=== PATIENT | male | born 1970 | race Caucasian/White ===

== ENCOUNTER 2017-07-24 10:37 | Day surgery (SDC) | payer OTHER ==
[2017-07-21 12:43] VITALS: BMI 31.0
[2017-07-24 11:19] VITALS: BP 135/79; PULSE 66; TEMP 99
[2017-07-24 11:32] LABS: INR 1.04 (0.82-1.09); PROTHROMBIN TIME (PATIENT) 11.7 SEC (9.98-11.88)
[2017-07-24 11:34] LABS: ACTIVATED PTT 28.1 SECONDS (26.9-34.4)
== END 2017-07-24 11:57 | disposition home or self-care (01) ==
LOC: JASU-SURG 10:37
PROVIDERS: ATTEND Urology
PROC: 0T29XYZ Change Other Device in Ureter, External Approach (ICD-10-PCS; principal; 2017-07-24)
DX: Z53.8 Procedure and treatment not carried out for other reasons (principal)
CPT/HCPCS: 36415; 85610; 85730

== ENCOUNTER 2019-05-13 14:31 | Emergency (ER) | payer BC ==
[2019-05-13 14:46] VITALS: BP 133/73; PULSE 51; TEMP 98.5; BMI 29.7
[2019-05-13] MEDS ORDERED: ASPIRIN 81 MG CHEWABLE TABLETS PO ONE (15:04)
--- NOTE | 2019-05-13 15:26 | PDOC ---
Documentation entered by Patricia Sabillon SCRIBE, acting as scribe for Kenneth Buenrostro MD. Kenneth Buenrostro MD: This documentation has been prepared by the sisacibeRidge Lincy, SCRIBE, under my direction and personally reviewed by me in its entirety. I confirm that the documentation accurately reflects all work, treatment, procedures, and medical decision making performed by me. History of Present Illness - General Chief Complaint: Chest Pain Stated Complaint: CHEST PAIN History Source: Patient Exam Limitations: No Limitations - History of Present Illness Initial Comments: 05/13/19 14:53 The patient is a 48-year-old male with a past medical history significant for Gastric sleeve (2012 with complications) and chronic tobacco user who presents to the emergency department with chest pain. The patient reports he was en route to work at [employer] when he had a sudden onset of right-sided anterior chest pain associated with right-hand numbness. The patient reports the pain lasted for about 45 minutes before self-resolving since then, the pain has been intermittent in quality. The patient reports a similar episode yesterday around 10:30am while walking around at work. Denies nausea, vomiting, diaphoresis, palpitations, lightheadedness, or shortness of breath. The patient reports in January 2019 the patient was diagnosed with pneumonia after episodes of hemoptysis, treated with Levaquin and prednisone. Denies fever, chills, or cough. Family history: Father: CHF (decreased 6 years ago). Mother: Open heart surgery with valve replacement (4 years ago). Allergies: NKA Social history: Daily tobacco use, Denies the use of alcohol and recreational drugs. The patient reports he has 2 cups of coffee in the morning. Surgical history: Gastric sleeve (2012) PCP: Dr. Leta Guy Past History - Past Medical History Allergies/Adverse Reactions: Allergies Allergy/AdvReac Type Severity Reaction Status Date / Time No Known Allergies Allergy Verified 05/13/19 14:37 Home Medications: Ambulatory Orders Haloperidol Lactate 50 ml IM ASDIR 11/03/15 Metoprolol Succinate [Toprol Xl] 25 mg PO DAILY #30 tab.er.24h 05/13/19 Anemia: No Asthma: No Cancer: No Cardiac Disorders: Yes (MULTIPLE DVTS) CVA: No COPD: No CHF: No Dementia: No Diabetes: No GI Disorders: No Disorders: No HTN: No Hypercholesterolemia: No Liver Disease: No Seizures: No Thyroid Disease: No - Surgical History Abdominal Surgery: Yes (GASTRIC SLEEVE 09/10/12) Appendectomy: No Cardiac Surgery: No Cholecystectomy: No Lung Surgery: No Neurologic Surgery: No Orthopedic Surgery: No - Immunization History Immunization Up to Date: Yes - Psycho Social/Smoking Cessation Hx Smoking Status: Yes Smoking History: Current some day smoker Have you smoked in the past 12 months: Yes Number of Cigarettes Smoked Daily: 5 'Breaking Loose' booklet given: 07/21/17 Hx Alcohol Use: No Drug/Substance Use Hx: No Substance Use Type: None Hx Substance Use Treatment: No Cardiac Specific PMH - Complaint Specific PMHX Pacemaker: No Review of Systems - Review of Systems Able to Perform ROS?: Yes Comments:: 05/13/19 14:53 Constitutional - Pt denies Fever, Chills, weakness, HEENT: denies vision changes, sore throat Respiratory: Denies cough, sob, hemoptysis Cardiac: +chest pain. denies palpitations, light headedness, leg swelling Abd/GI: denies abd pain, nausea, vomiting, blood per rectum, melena, diarrhea : denies dysuria, frequency, discharge Musculskelatal - denies back pain, joint swelling skin - denies bruising, erythema, rash neurological: +right hand numbness, denies headache, numbness elsewhere, focal weakness, tingling, ataxia, weakness hematologic: denies anemia, easy bruising, easy bleeding. *Physical Exam - Vital Signs Last Vital Signs Temp Pulse Resp BP Pulse Ox 98.5 F 51 L 20 133/73 99 05/13/19 14:31 05/13/19 14:31 05/13/19 14:31 05/13/19 14:31 05/13/19 14:31 - Physical Exam 05/13/19 14:55 GENERAL: The patient is awake, alert, and fully oriented, Nontoxic - in no acute distress. HEAD: Normocephalic, atraumatic. EYES: extraocular movements intact, sclera anicteric, conjunctiva clear. ENT: Normal voice, Moist mucous membranes. NECK: Normal range of motion, supple without lymphadenopathy, JVD, or masses. LUNGS: Breath sounds equal, clear to auscultation bilaterally. No wheezes, no crackles, no rales. HEART: Regular rate and rhythm, normal S1 and S2 without murmur, rub or gallop. ABDOMEN: Soft, nontender, normoactive bowel sounds. No guarding, no rebound. No masses. EXTREMITIES: Normal range of motion, no edema. No clubbing or cyanosis. No cords, erythema, or tenderness. NEUROLOGICAL: No facial asymmetry, Normal speech, normal gait. PSYCH: Normal mood, normal affect. SKIN: Warm, Dry, normal turgor, no rashes or lesions noted. Heart Score/ECG Review - ECG Impressions Comment:: 05/13/19 15:25 Twelve-lead EKG was performed and reviewed by me. There is normal sinus rhythm rate of 49 The axis is normal. The intervals are normal. There is normal R wave progression There are no ST or T wave abnormalities. Impression: Sinus bradycardia ED Treatment Course - LABORATORY CBC & Chemistry Diagram: 05/13/19 15:15 05/13/19 15:15 - ADDITIONAL ORDERS Additional order review: Laboratory Results 05/13/19 05/13/19 05/13/19 17:30 17:30 15:15 Sodium 136 Potassium 4.7 Chloride 103 Carbon Dioxide 26 Anion Gap 7 L BUN 15.0 Creatinine 0.8 Est GFR (CKD-EPI)AfAm 122.43 Est GFR (CKD-EPI)NonAf 105.63 Random Glucose 90 Calcium 9.2 Total Bilirubin 0.4 AST 14 L ALT 12 L Alkaline Phosphatase 22 L Creatine Kinase 78 76 Troponin I < 0.03 Total Protein 7.2 Albumin 4.0 05/13/19 15:15 Sodium Potassium Chloride Carbon Dioxide Anion Gap BUN Creatinine Est GFR (CKD-EPI)AfAm Est GFR (CKD-EPI)NonAf Random Glucose Calcium Total Bilirubin AST ALT Alkaline Phosphatase Creatine Kinase Troponin I < 0.03 Total Protein Albumin 05/13/19 15:15 RBC 5.02 MCV 91.7 MCHC 32.8 RDW 12.8 MPV 9.5 Neutrophils % 62.8 Lymphocytes % 27.3 Monocytes % 8.2 Eosinophils % 0.9 Basophils % 0.8 - RADIOLOGY Radiology Studies Ordered: Category Date Time Status CHEST PA & LAT [RAD] Stat Radiology 05/13/19 15:04 Completed - Medications Given in the ED: ED Medications Discontinued Medications Generic Name Dose Route Start Last Admin Trade Name Freq PRN Reason Stop Dose Admin Aspirin 162 mg 05/13/19 15:04 05/13/19 15:29 Asa - PO 05/13/19 15:05 162 mg ONCE ONE Administration Medical Decision Making - Medical Decision Making 05/13/19 15:04 48y M with smoking hx presents with 45min episode of chest tightness and R arm numbness today and yesterday. pain is not exertional without n/v, diaphroesis, sob, palitations. pt currently asymptomatic. ?acs/angina will obtain blood work, cardiac enzymes, ekg, cxr will give asa will dw PMD 05/13/19 16:34 Patient's blood work is reviewed, tropes negative x1. The patient started to have the same symptoms approximately 15 minutes ago a repeat EKG was performed it does show a sinus rhythm with bigeminy, The initial EKG was sinus bradycardia. I suspect that rather than ACS his tightness symptoms may be secondary to the bigeminy rhythm. 05/13/19 17:56 2nd trop neg will dc with pmd fu and supportive care dw PMD - recommend starting toprol xl 25mg daily return precautions were discussed I discussed the physical exam findings, ancillary test results and final diagnoses with the patient. I answered all of the patient's questions. The patient was satisfied with the care received and felt comfortable with the discharge plan and treatment plan. The patient will call their primary care physician within 24 hours to arrange follow-up and will return to the Emergency Department with any new, persistent or worsening symptoms. Discharge - Discharge Information Problems reviewed: Yes Clinical Impression/Diagnosis: Bigeminy Chest pain Qualifiers: Chest pain type: unspecified Qualified Code(s): R07.9 - Chest pain, unspecified Condition: Improved Disposition: HOME - Admission No - Additional Discharge Information Prescriptions: Metoprolol Succinate [Toprol Xl] 25 mg PO DAILY #30 tab.er.24h - Follow up/Referral Referrals: Lobo Guy MD [Primary Care Provider] - - Patient Discharge Instructions Patient Printed Discharge Instructions: DI for Atypical Chest Pain Additional Instructions: Return to the emergency department immediately with ANY new, persistent or worsening symptoms. You MUST call and follow up with your doctor tomorrow for further evaluation of your symptoms. Results were discussed with you. Please make sure your doctor reviews the results of your emergency evaluation. Your Emergency Department visit is not complete without a follow up with your doctor. If you had any xrays during your visit, it was read preliminarily by myself, a Radiologist will review it and if there are any additional findings we will call you. Print Language: NEPALI - Post Discharge Activity
[2019-05-13] MEDS ORDERED: ASPIRIN 81 MG CHEWABLE TABLETS ONE (15:27)
[2019-05-13 15:52] LABS: BASO % 0.8 % (0-2.0); EOS % 0.9 % (0-4.5); HEMOGLOBIN 15.1 GM/dl (11.7-16.9); LYMPH % 27.3 % (8-40); MCH 30.1 pg (25.7-33.7); MCHC 32.8 g/dl (32.0-35.9); MEAN CELL VOLUME 91.7 fl (80-96); MEAN PLT VOLUME 9.5 fl (7.5-11.1); MONO % 8.2 % (3.8-10.2); NEUT % 62.8 % (42.8-82.8); PLATELET COUNT 256 K/MM3 (134-434); RBC 5.02 M/mm3 (4.00-5.60); RDW 12.8 % (11.9-15.9); WHITE BLOOD COUNT 9.2 K/mm3 (4.0-10.8)
[2019-05-13 16:02] LABS: BILIRUBIN,TOTAL 0.4 mg/dl (0.2-1); CALCIUM 9.2 mg/dl (8.5-10); CREATININE 0.8 mg/dl (0.55-1.3); POTASSIUM 4.7 mmol/L (3.5-5.1); TOT PROT 7.2 g/dl (6.4-8.2)
--- NOTE | 2019-05-14 11:31 | EKG ---
Test Reason : Blood Pressure : / mmHG Vent. Rate : 085 BPM Atrial Rate : 085 BPM P-R Int : 136 ms QRS Dur : 076 ms QT Int : 368 ms P-R-T Axes : 049 020 039 degrees QTc Int : 437 ms SINUS RHYTHM WITH FREQUENT PREMATURE VENTRICULAR COMPLEXES IN A PATTERN OF BIGEMINY OTHERWISE NORMAL ECG WHEN COMPARED WITH ECG OF 13-MAY-2019 14:34, PREMATURE VENTRICULAR COMPLEXES ARE NOW PRESENT VENT. RATE HAS INCREASED BY 36 BPM QT HAS LENGTHENED Confirmed by Daniel Alonzo MD ([id number]) on 05/14/2019 11:31:34 AM Referred By: Confirmed By:Daniel Alonzo MD
--- NOTE | 2019-05-14 11:31 | EKG ---
Test Reason : Blood Pressure : / mmHG Vent. Rate : 049 BPM Atrial Rate : 049 BPM P-R Int : 134 ms QRS Dur : 084 ms QT Int : 410 ms P-R-T Axes : 065 040 046 degrees QTc Int : 370 ms SINUS BRADYCARDIA OTHERWISE NORMAL ECG WHEN COMPARED WITH ECG OF 18-NOV-2015 09:58, VENT. RATE HAS DECREASED BY 25 BPM Confirmed by Daniel Alonzo MD ([id number]) on 05/14/2019 11:31:35 AM Referred By: CHRIS EDWARDS Confirmed By:Daniel Alonzo MD
== END 2019-05-13 18:03 | disposition home or self-care (01) ==
LOC: FER 14:31 → SUPCPDRO 14:31 → FER 18:03
DX: I49.3 Ventricular premature depolarization (principal); R07.9 Chest pain, unspecified
CPT/HCPCS: 36415; 71046-TC-FY; 80053; 82550; 84484; 85025; 93005; 99282-25

== ENCOUNTER 2020-09-03 13:09 | Emergency (ER) | payer BC ==
[2020-09-03 13:28] VITALS: TEMP 99; BMI 27.3
[2020-09-03] MEDS ORDERED: SODIUM CHLORIDE 0.9% 1000 ML INFUS.BAG IV ONE (13:47)
[2020-09-03 13:50] LABS: BASO % 3.9 % (0-2.0); EOS % 2.3 % (0-4.5); HEMATOCRIT 43.5 % (35.4-49); HEMOGLOBIN 14.6 GM/dl (11.7-16.9); LYMPH % 33.3 % (8-40); MCH 30.7 pg (25.7-33.7); MCHC 33.6 g/dl (32.0-35.9); MEAN CELL VOLUME 91.5 fl (80-96); MEAN PLT VOLUME 9.4 fl (7.5-11.1); MONO % 10.2 % (3.8-10.2); NEUT % 50.3 % (42.8-82.8); PLATELET COUNT 240 K/MM3 (134-434); RBC 4.75 M/mm3 (4.00-5.60); RDW 13.1 % (11.9-15.9); WHITE BLOOD COUNT 9.6 K/mm3 (4.0-10.8)
[2020-09-03 13:53] LABS: ALBUMIN 4.2 g/dl (3.4-5.0); BILIRUBIN,TOTAL 0.9 mg/dl (0.2-1); CALCIUM 9.3 mg/dl (8.5-10); CREATININE 0.7 mg/dl (0.55-1.3); TOT PROT 7.5 g/dl (6.4-8.2)
[2020-09-03 14:15] VITALS: PULSE 45
[2020-09-03 14:30] VITALS: BP 112/89
[2020-09-03] MEDS ORDERED: HALOPERIDOL DECANOATE 100 MG/ML IM ONE (14:46)
== END 2020-09-03 15:24 | disposition home or self-care (01) ==
LOC: FER 13:09
PROC: 3E0233Z Introduction of Anti-inflammatory into Muscle, Percutaneous Approach (ICD-10-PCS; principal; 2020-09-03)
DX: R00.1 Bradycardia, unspecified (principal); R91.1 Solitary pulmonary nodule; I25.84 Coronary atherosclerosis due to calcified coronary lesion; R07.2 Precordial pain
CPT/HCPCS: 36415; 71045-TC-FY; 71275-TC; 74174-TC; 80053; 82550; 82553; 84443; 84484; 85025; 93005; 99285-25; C9803; Q9967; U0003; U0005

== ENCOUNTER 2020-09-17 12:52 | Emergency (ER) | payer BC ==
[2020-09-17 14:53] VITALS: BMI 27.3
[2020-09-17 14:57] LABS: HEMOGLOBIN 14.3 GM/dl (11.7-16.9)
[2020-09-17 15:01] LABS: BASO % 2.5 % (0-2.0); HEMATOCRIT 40.6 % (35.4-49); LYMPH % 25.2 % (8-40); MCH 31.8 pg (25.7-33.7); MCHC 35.2 g/dl (32.0-35.9); MEAN CELL VOLUME 90.4 fl (80-96); MEAN PLT VOLUME 8.9 fl (7.5-11.1); MONO % 10.5 % (3.8-10.2); NEUT % 59.8 % (42.8-82.8); PLATELET COUNT 209 K/MM3 (134-434); RBC 4.49 M/mm3 (4.00-5.60); RDW 12.8 % (11.9-15.9); WHITE BLOOD COUNT 7.7 K/mm3 (4.0-10.8)
[2020-09-17] MEDS ORDERED: ASPIRIN 81 MG CHEWABLE TABLETS PO ONE (15:09)
[2020-09-17 15:15] LABS: ALBUMIN 3.6 g/dl (3.4-5.0); BILIRUBIN,TOTAL 0.8 mg/dl (0.2-1); CALCIUM 8.8 mg/dl (8.5-10); CREATININE 0.7 mg/dl (0.55-1.3); TOT PROT 6.6 g/dl (6.4-8.2)
[2020-09-17] MEDS ORDERED: ASPIRIN 81 MG CHEWABLE TABLETS ONE (15:29)
[2020-09-17 15:44] LABS: ACTIVATED PTT 25.1 SECONDS (25.2-36.5)
[2020-09-17 15:48] LABS: INR 1.18 (0.82-1.09); PROTHROMBIN TIME (PATIENT) 13.1 SEC (10.2-13.0)
[2020-09-17 21:23] VITALS: BP 126/72; PULSE 38; TEMP 98.6
== END 2020-09-18 00:55 | disposition short-term general hospital (02) ==
LOC: FER 12:52
DX: R07.9 Chest pain, unspecified (principal); R00.1 Bradycardia, unspecified
CPT/HCPCS: 36415; 71046-TC-FY; 80053; 84484; 85025; 85610; 85730; 93005; 99283-25; C9803; U0003; U0005

== ENCOUNTER 2020-10-12 16:17 | Observation (INO) | payer BC ==
[2020-10-12 16:27] VITALS: BMI 29.0
[2020-10-12 18:16] LABS: BASO % 1.5 % (0-2.0); EOS % 2.7 % (0-4.5); HEMATOCRIT 40.7 % (35.4-49); HEMOGLOBIN 13.9 GM/dL (11.7-16.9); LYMPH % 28.6 % (8-40); MCH 30.6 pg (25.7-33.7); MEAN CELL VOLUME 89.7 fl (80-96); MEAN PLT VOLUME 8.7 fl (7.5-11.1); MONO % 10.6 % (3.8-10.2); NEUT % 56.6 % (42.8-82.8); PLATELET COUNT 204 10^3/uL (134-434); RBC 4.53 M/mm3 (4.00-5.60); RDW 13.6 % (11.9-15.9)
[2020-10-12 18:34] LABS: CHLORIDE 109 mmol/L (98-107); SODIUM 141 mmol/L (136-145)
[2020-10-12 18:36] LABS: CALCIUM 8.4 mg/dL (8.5-10.1)
[2020-10-12 18:37] LABS: ALBUMIN 3.3 g/dl (3.4-5.0); ANION GAP 7 MMOL/L (8-16); BLOOD UREA NITROGEN 15.5 mg/dL (7-18); CO2 24 mmol/L (21-32); GLUCOSE,RANDOM 80 mg/dL (74-106)
[2020-10-12 18:39] LABS: MAGNESIUM 1.9 mg/dL (1.8-2.4)
[2020-10-12 18:40] LABS: CREATININE 0.7 mg/dL (0.55-1.3); SGOT/AST 12 U/L (15-37)
[2020-10-12 18:42] LABS: BILIRUBIN,TOTAL 0.3 mg/dL (0.2-1); CHOLESTEROL 156 mg/dL (50-200); TOT PROT 6.8 g/dl (6.4-8.2)
[2020-10-12 18:43] LABS: ALK PHOS 32 U/L (45-117); LDL CHOLESTEROL (ONLY SJRH) 97 mg/dL (5-100); TRIGLYCERIDES 93 mg/dL (0-150)
[2020-10-12 18:45] LABS: HDL CHOLESTEROL 38 mg/dL (40-60)
[2020-10-12 18:49] LABS: SGPT/ALT 15 U/L (13-61)
[2020-10-12] MEDS: ESCITALOPRAM OXALATE 10 MG TABLET PO SCH (21:47)
[2020-10-12] MEDS: SODIUM CHLORIDE 1,000 ML IV SCH (21:48)
[2020-10-12] MEDS: PENTOXIFYLLINE 400 MG TABLET.ER PO SCH (21:48)
[2020-10-12] MEDS: ARIPiprazole 10 MG TABLET PO SCH (21:49)
[2020-10-13 07:20] LABS: HEMATOCRIT 40.7 % (35.4-49); HEMOGLOBIN 13.8 GM/dL (11.7-16.9); MCH 30.6 pg (25.7-33.7); MCHC 33.9 g/dl (32.0-35.9); MEAN CELL VOLUME 90.4 fl (80-96); MEAN PLT VOLUME 8.4 fl (7.5-11.1); PLATELET COUNT 192 10^3/uL (134-434); RDW 13.5 % (11.9-15.9); WHITE BLOOD COUNT 7.3 K/mm3 (4.0-10.0)
[2020-10-13] MEDS ORDERED: PT OWN MED DRAWER 7, Y5N ONE ×5 (09:13→21:10)
[2020-10-13] MEDS: ASPIRIN COATED 81 MG TABLET.EC PO SCH (09:24)
[2020-10-13] MEDS: PENTOXIFYLLINE 400 MG TABLET.ER PO SCH ×3 (09:24→18:54)
[2020-10-13 09:51] LABS: MAGNESIUM 1.9 mg/dL (1.8-2.4)
[2020-10-13] MEDS: SODIUM CHLORIDE 1,000 ML IV SCH (18:54)
[2020-10-13] MEDS ORDERED: HALOPERIDOL DECANOATE 100 MG/ML IM ONE (21:00)
[2020-10-13] MEDS: ESCITALOPRAM OXALATE 10 MG TABLET PO SCH (21:19)
[2020-10-13] MEDS: ATORVASTATIN CA 40 MG TABLET (FP) PO SCH (21:19)
[2020-10-13] MEDS: ARIPiprazole 10 MG TABLET PO SCH (21:19)
[2020-10-14] MEDS ORDERED: PT OWN MED DRAWER 7, Y5N ONE ×4 (09:33→21:22)
[2020-10-14] MEDS: PENTOXIFYLLINE 400 MG TABLET.ER PO SCH ×3 (10:47→18:31)
[2020-10-14] MEDS: ASPIRIN COATED 81 MG TABLET.EC PO SCH (10:47)
[2020-10-14] MEDS: MECLIZINE HCL 12.5 MG TABLET PO SCH ×2 (14:26→21:37)
[2020-10-14] MEDS: ARIPiprazole 10 MG TABLET PO SCH (21:36)
[2020-10-14] MEDS: ATORVASTATIN CA 40 MG TABLET (FP) PO SCH (21:37)
[2020-10-14] MEDS: ESCITALOPRAM OXALATE 10 MG TABLET PO SCH (21:37)
[2020-10-15] MEDS: MECLIZINE HCL 12.5 MG TABLET PO SCH ×3 (05:00→21:44)
[2020-10-15] MEDS ORDERED: PT OWN MED DRAWER 7, Y5N ONE ×3 (08:00→21:38)
[2020-10-15] MEDS: PENTOXIFYLLINE 400 MG TABLET.ER PO SCH ×3 (08:02→17:10)
[2020-10-15] MEDS: ASPIRIN COATED 81 MG TABLET.EC PO SCH (10:29)
[2020-10-15] MEDS ORDERED: HALOPERIDOL DECANOATE 100 MG/ML IM ONE (13:41)
[2020-10-15] MEDS ORDERED: ACETAMINOPHEN 500 MG TABLET (FP) PO PRN (13:41)
[2020-10-15] MEDS: ATORVASTATIN CA 40 MG TABLET (FP) PO SCH (21:43)
[2020-10-15] MEDS: ARIPiprazole 10 MG TABLET PO SCH (21:43)
[2020-10-15] MEDS: ESCITALOPRAM OXALATE 10 MG TABLET PO SCH (21:43)
[2020-10-16 05:58] VITALS: BP 124/57; PULSE 38; TEMP 97.8
[2020-10-16] MEDS: MECLIZINE HCL 12.5 MG TABLET PO SCH (06:01)
[2020-11-09] MEDS ORDERED: HALOPERIDOL DECANOATE 100 MG/ML IM SCH (10:00)
[2020-11-10] MEDS ORDERED: HALOPERIDOL DECANOATE 100 MG/ML IM SCH (10:00)
== END 2020-10-16 06:45 | disposition short-term general hospital (02) ==
LOC: JER 16:17 → JERBED 16:56 → UNDOADMOB 16:56 → INTOOBSV 16:56 → JERBED 17:10 → J4S 20:36
PROVIDERS: ADMIT Family Medicine; ATTEND Family Medicine
PROC: 3E023GC Introduction of Other Therapeutic Substance into Muscle, Percutaneous Approach (ICD-10-PCS; principal; 2020-10-12)
DX: R00.1 Bradycardia, unspecified (principal); R07.89 Other chest pain; I10 Essential (primary) hypertension; I48.0 Paroxysmal atrial fibrillation; R91.8 Other nonspecific abnormal finding of lung field; F17.210 Nicotine dependence, cigarettes, uncomplicated; F41.9 Anxiety disorder, unspecified; F32.9 Major depressive disorder, single episode, unspecified; G47.30 Sleep apnea, unspecified; I25.10 Atherosclerotic heart disease of native coronary artery without angina pectoris; R53.1 Weakness; R53.83 Other fatigue; Z86.718 Personal history of other venous thrombosis and embolism; Z98.84 Bariatric surgery status; Z79.82 Long term (current) use of aspirin; Z95.828 Presence of other vascular implants and grafts
CPT/HCPCS: 36415; 70450-TC; 80053; 80061; 82550; 83036; 83721; 83735; 84439; 84481; 84484; 85025; 85027; 93005; 93010; 93225; 93226; 93306-TC; 99285-25; C9803; G0378; U0003; U0005

== ENCOUNTER 2021-12-03 09:49 | Emergency (ER) | payer BC ==
[2021-12-03 10:10] VITALS: BP 130/89; PULSE 78; RESP 18; TEMP 98.3; BMI 23.1
[2021-12-03 11:06] LABS: BASO % 1.4 % (0-2.0); EOS % 1.9 % (0-4.5); HEMATOCRIT 44.9 % (35.4-49); HEMOGLOBIN 15.5 GM/dL (11.7-16.9); LYMPH % 31.2 % (8-40); MCH 30.6 pg (25.7-33.7); MCHC 34.4 g/dl (32.0-35.9); MEAN CELL VOLUME 88.8 fl (80-96); MEAN PLT VOLUME 8.9 fl (7.5-11.1); MONO % 9.2 % (3.8-10.2); NEUT % 56.3 % (42.8-82.8); PLATELET COUNT 226 10^3/uL (134-434); RBC 5.06 M/mm3 (4.00-5.60); RDW 13.6 % (11.9-15.9); WHITE BLOOD COUNT 7.9 K/mm3 (4.0-10.0)
[2021-12-03 11:10] LABS: INR 1.09 (0.83-1.09); PROTHROMBIN TIME (PATIENT) 12.5 SEC (9.7-13.0)
[2021-12-03 11:27] LABS: ALBUMIN 3.7 g/dl (3.4-5.0); BLOOD UREA NITROGEN 13.6 mg/dL (7-18)
[2021-12-03 11:30] LABS: CREATININE 0.7 mg/dL (0.55-1.3)
[2021-12-03 11:32] LABS: BILIRUBIN,TOTAL 0.4 mg/dL (0.2-1); TOT PROT 7.4 g/dl (6.4-8.2)
[2021-12-03 13:00] LABS: PHOSPHOROUS 3.8 mg/dL (2.5-4.9)
[2021-12-03] MEDS ORDERED: ACETAMINOPHEN 1000 MG/100 ML BAG IVPB ONE (13:38)
[2021-12-03] MEDS ORDERED: ACETAMINOPHEN INJECTION 100 ML IVPB ONE (14:02)
== END 2021-12-03 15:15 ==
LOC: JER 09:49
DX: I49.9 Cardiac arrhythmia, unspecified (principal)
CPT/HCPCS: 36415; 71045-TC-FY; 80053; 83690; 83735; 84100; 84439; 84443; 84484; 85025; 85610; 85730; 86850; 86900; 86901; 93005; 93010; 93971-TC; 99285-25; C9803-CS; U0003; U0005

== ENCOUNTER 2022-04-28 10:52 | Emergency (ER) | payer OTHER ==
[2022-04-28 11:06] VITALS: BP 147/96; PULSE 94; RESP 20; TEMP 98; BMI 27.8
[2022-04-28] MEDS ORDERED: SODIUM CHLORIDE 0.9% 1000 ML INFUS.BAG IV ONE (12:09)
[2022-04-28 12:50] LABS: HEMATOCRIT 46.9 % (35.4-49); HEMOGLOBIN 16.2 G/dL (11.7-16.9); MCH 31.7 pg (25.7-33.7); MCHC 34.5 g/dl (32.0-35.9); MEAN CELL VOLUME 91.7 fl (80-96); MEAN PLT VOLUME 8.5 fl (7.5-11.1); PLATELET COUNT 235.9 10^3/uL (134-434); RBC 5.11 10^6/uL (4.00-5.60); WHITE BLOOD COUNT 8.5 10^3/uL (4.0-10.8)
[2022-04-28 13:19] LABS: PLATELET ESTIMATE ADEQUATE
[2022-04-28 13:20] LABS: BILIRUBIN,TOTAL 0.8 mg/dl (0.2-1); CALCIUM 9.3 mg/dl (8.5-10); CREATININE 0.7 mg/dl (0.55-1.3); TOT PROT 7.4 g/dl (6.4-8.2)
== END 2022-04-28 14:06 | disposition home or self-care (01) ==
LOC: FER 10:52
DX: R42 Dizziness and giddiness (principal)
CPT/HCPCS: 36415; 80053; 85027; 93005; 99284-25

== ENCOUNTER 2022-06-08 15:47 | Emergency (ER) | payer OTHER ==
[2022-06-08] MEDS ORDERED: KETOROLAC TROMETHAMINE 30 MG/1 ML VIAL IM ONE (16:02)
[2022-06-08 16:04] VITALS: BP 155/98; PULSE 51; RESP 16; TEMP 98.7; BMI 27.6
[2022-06-08] MEDS ORDERED: KETOROLAC TROMETHAMINE 30 MG/1 ML VIAL ONE (16:05)
== END 2022-06-08 17:08 | disposition home or self-care (01) ==
LOC: FER 15:47
PROC: 3E023GC Introduction of Other Therapeutic Substance into Muscle, Percutaneous Approach (ICD-10-PCS; principal; 2022-06-08)
DX: M79.661 Pain in right lower leg (principal); R20.8 Other disturbances of skin sensation
CPT/HCPCS: 93971-TC; 99284-25

== ENCOUNTER 2022-08-13 10:12 | Inpatient (IN) | payer OTHER ==
[2022-08-13 10:29] VITALS: BMI 28.3
[2022-08-13 10:55] LABS: BASO % 0.8 % (0-2.0); EOS % 1.6 % (0-4.5); HEMATOCRIT 44.2 % (35.4-49); HEMOGLOBIN 15.4 GM/dL (11.7-16.9); LYMPH % 25.9 % (8-40); MCH 31.3 pg (25.7-33.7); MEAN CELL VOLUME 89.5 fl (80-96); MEAN PLT VOLUME 8.8 fl (7.5-11.1); MONO % 8.9 % (3.8-10.2); NEUT % 62.8 % (42.8-82.8); PLATELET COUNT 232 10^3/uL (134-434); RBC 4.94 M/mm3 (4.00-5.60); RDW 13.7 % (11.9-15.9); WHITE BLOOD COUNT 9.1 K/mm3 (4.0-10.0)
[2022-08-13 11:03] LABS: INR 1.1 (0.83-1.09); PROTHROMBIN TIME (PATIENT) 12.8 SEC (9.7-13.0)
[2022-08-13 11:05] LABS: ACTIVATED PTT 27.1 SECONDS (25.2-36.5)
[2022-08-13 11:18] LABS: CHLORIDE 105 mmol/L (98-107); SODIUM 137 mmol/L (136-145)
[2022-08-13 11:20] LABS: ALBUMIN 3.6 g/dl (3.4-5.0); ANION GAP 5 MMOL/L (8-16); CALCIUM 9.1 mg/dL (8.5-10.1); CO2 27 mmol/L (21-32); GLUCOSE,RANDOM 102 mg/dL (74-106); MAGNESIUM 2.1 mg/dL (1.8-2.4)
[2022-08-13 11:21] LABS: BLOOD UREA NITROGEN 10.5 mg/dL (7-18)
[2022-08-13 11:23] LABS: SGOT/AST 14 U/L (15-37); SGPT/ALT 16 U/L (13-61)
[2022-08-13 11:24] LABS: CREATININE 0.7 mg/dL (0.55-1.3); PHOSPHOROUS 3.3 mg/dL (2.5-4.9)
[2022-08-13 11:25] LABS: BILIRUBIN,TOTAL 0.7 mg/dL (0.2-1); TOT PROT 7.1 g/dl (6.4-8.2)
[2022-08-13 11:26] LABS: ALK PHOS 29 U/L (45-117)
[2022-08-13 13:49] LABS: N-TERMINAL BNP 100.5 pg/ml (5-125)
[2022-08-13] MEDS ORDERED: NICOTINE POLACRILEX 2 MG GUM BUC PRN (13:59)
[2022-08-13] MEDS ORDERED: ARIPiprazole 2 MG TABLET PO ONE (13:59)
[2022-08-13] MEDS ORDERED: FOLIC ACID 1 MG TABLET (FP) ONE (14:44)
[2022-08-13] MEDS ORDERED: NICOTINE 14 MG/24 HOURS TOPICAL PATCH TD ONE (14:45)
[2022-08-13] MEDS: FOLIC ACID 1 MG TABLET (FP) PO SCH (14:59)
[2022-08-13] MEDS: SODIUM CHLORIDE 1,000 ML IV SCH (14:59)
[2022-08-13] MEDS: NICOTINE 14 MG/24 HOURS TOPICAL PATCH TD SCH (14:59)
[2022-08-13] MEDS: ACETAMINOPHEN 325 MG TABLET (FP) PO PRN ×2 (16:48→22:46)
[2022-08-13] MEDS: chlordiazePOXIDE HCL 25 MG CAPSULE PO SCH ×2 (16:50→22:45)
[2022-08-13 19:35] LABS: IRON SERUM 118 ug/dL (50-175); TOTAL IRON BINDING CAPACITY 261 ug/dL (250-450)
[2022-08-13] MEDS: METOPROLOL TARTRATE 25 MG TABLET (FP) PO SCH ×2 (22:45→22:52)
[2022-08-13] MEDS: ATORVASTATIN CA 40 MG TABLET (FP) PO SCH (22:46)
[2022-08-13] MEDS: THIAMINE HCL 100 MG TABLET (FP) PO SCH (22:46)
[2022-08-14] MEDS: chlordiazePOXIDE HCL 25 MG CAPSULE PO SCH ×4 (05:32→23:25)
[2022-08-14] MEDS: ACETAMINOPHEN 325 MG TABLET (FP) PO PRN ×3 (07:45→21:39)
[2022-08-14] MEDS: METOPROLOL TARTRATE 25 MG TABLET (FP) PO SCH (07:45)
[2022-08-14] MEDS ORDERED: METOPROLOL TARTRATE 25 MG TABLET (FP) PO ONE (09:54)
[2022-08-14] MEDS: FOLIC ACID 1 MG TABLET (FP) PO SCH (09:56)
[2022-08-14] MEDS: NICOTINE 14 MG/24 HOURS TOPICAL PATCH TD SCH (09:56)
[2022-08-14] MEDS: THIAMINE HCL 100 MG TABLET (FP) PO SCH ×3 (09:56→23:24)
[2022-08-14] MEDS: ASPIRIN COATED 81 MG TABLET.EC PO SCH (10:08)
[2022-08-14] MEDS ORDERED: IRON SUCROSE INJECTION 200 MG in SODIUM CHLORIDE 90 ML IVPB ONE (10:25)
[2022-08-14] MEDS ORDERED: ALBUTEROL SO4 HFA INHALER IH PRN (10:34)
[2022-08-14] MEDS: SODIUM CHLORIDE 1,000 ML IV SCH (13:38)
[2022-08-14 14:42] LABS: CHOLESTEROL 158 mg/dL (50-200)
[2022-08-14 14:43] LABS: LDL CHOLESTEROL (ONLY SJRH) 103 mg/dL (5-100)
[2022-08-14 14:44] LABS: HDL CHOLESTEROL 41 mg/dL (40-60)
[2022-08-14 15:10] LABS: EPI CELLS 12 /uL (0-25.1); HYALINE CASTS 2 /uL (0-3.1); PH,URINE 6.5 (5.0-8.0); URINE APPEARANCE CLEAR; URINE BACTERIA 30 /uL (0-1359); URINE BILIRUBIN NEGATIVE (NEGATIVE); URINE COLOR DK YELLOW; URINE GLUCOSE (UA) NEGATIVE (NEGATIVE); URINE KETONE TRACE (NEGATIVE); URINE LEUK ESTERASE TRACE (NEGATIVE); URINE NITRITE NEGATIVE (NEGATIVE); URINE PROTEIN NEGATIVE (NEGATIVE); URINE RBC 42 /uL (0-23.9); URINE WBC 11 /uL (0-25.8)
[2022-08-14] MEDS ORDERED: MAG HYDROX/AL HYDROX/SIMETH -MYLANTA- ORAL SUSPENSION PO ONE (16:50)
[2022-08-14] MEDS ORDERED: PANTOPRAZOLE 40 MG TABLET PO ONE (16:50)
[2022-08-14] MEDS ORDERED: MAG HYDROX/AL HYDROX/SIMETH -MYLANTA- ORAL SUSPENSION PO SCH (18:00)
[2022-08-14] MEDS: METOPROLOL TARTRATE 50 MG TABLET (FP) PO SCH (20:39)
[2022-08-14] MEDS: PANTOPRAZOLE 40 MG TABLET PO SCH (21:42)
[2022-08-14] MEDS: ATORVASTATIN CA 40 MG TABLET (FP) PO SCH (21:42)
[2022-08-15] MEDS: MAG HYDROX/AL HYDROX/SIMETH 30 ML UNIT-DOSE CUP PO SCH ×4 (00:16→17:52)
[2022-08-15] MEDS: chlordiazePOXIDE HCL 25 MG CAPSULE PO SCH (05:59)
[2022-08-15 08:34] LABS: HEMATOCRIT 40.6 % (35.4-49); HEMOGLOBIN 14.1 GM/dL (11.7-16.9); MCH 31.4 pg (25.7-33.7); MCHC 34.7 g/dl (32.0-35.9); MEAN CELL VOLUME 90.4 fl (80-96); MEAN PLT VOLUME 9.3 fl (7.5-11.1); PLATELET COUNT 195 10^3/uL (134-434); RBC 4.49 M/mm3 (4.00-5.60); RDW 13.3 % (11.9-15.9); WHITE BLOOD COUNT 6.9 K/mm3 (4.0-10.0)
[2022-08-15 08:55] LABS: BLOOD UREA NITROGEN 11.9 mg/dL (7-18); CALCIUM 8.8 mg/dL (8.5-10.1)
[2022-08-15 08:57] LABS: CREATININE 0.7 mg/dL (0.55-1.3)
[2022-08-15 09:00] LABS: BILIRUBIN,TOTAL 0.5 mg/dL (0.2-1)
[2022-08-15] MEDS: ASPIRIN COATED 81 MG TABLET.EC PO SCH (09:27)
[2022-08-15] MEDS: METOPROLOL TARTRATE 50 MG TABLET (FP) PO SCH ×2 (09:27→21:36)
[2022-08-15] MEDS ORDERED: REGADENOSON 0.4 MG/5 ML PRE-FILLED SYRINGE IVPUSH ONE ×2 (09:38→10:00)
[2022-08-15] MEDS: PANTOPRAZOLE 40 MG TABLET PO SCH ×2 (13:32→21:36)
[2022-08-15] MEDS: NICOTINE 14 MG/24 HOURS TOPICAL PATCH TD SCH (13:34)
[2022-08-15] MEDS: THIAMINE HCL 100 MG TABLET (FP) PO SCH ×2 (13:34→21:38)
[2022-08-15] MEDS: FOLIC ACID 1 MG TABLET (FP) PO SCH (13:34)
[2022-08-15] MEDS ORDERED: chlordiazePOXIDE HCL 25 MG CAPSULE PO SCH (14:00)
[2022-08-15] MEDS: ATORVASTATIN CA 40 MG TABLET (FP) PO SCH (21:36)
[2022-08-15] MEDS: chlordiazePOXIDE HCL 10 MG CAPSULE PO SCH (21:36)
[2022-08-15] MEDS: SODIUM CHLORIDE 1,000 ML IV SCH (21:40)
[2022-08-16] MEDS: MAG HYDROX/AL HYDROX/SIMETH 30 ML UNIT-DOSE CUP PO SCH ×5 (01:02→23:08)
[2022-08-16] MEDS: chlordiazePOXIDE HCL 10 MG CAPSULE PO SCH ×3 (06:37→21:15)
[2022-08-16] MEDS: ASPIRIN COATED 81 MG TABLET.EC PO SCH (09:54)
[2022-08-16] MEDS: ARIPiprazole 10 MG TABLET PO SCH (09:54)
[2022-08-16] MEDS: FOLIC ACID 1 MG TABLET (FP) PO SCH (09:55)
[2022-08-16] MEDS: METOPROLOL TARTRATE 50 MG TABLET (FP) PO SCH ×2 (09:56→21:15)
[2022-08-16] MEDS: NICOTINE 14 MG/24 HOURS TOPICAL PATCH TD SCH (09:59)
[2022-08-16] MEDS: PANTOPRAZOLE 40 MG TABLET PO SCH ×2 (09:59→21:15)
[2022-08-16] MEDS: THIAMINE HCL 100 MG TABLET (FP) PO SCH ×2 (10:00→21:15)
[2022-08-16] MEDS: SODIUM CHLORIDE 1,000 ML IV SCH (14:16)
[2022-08-16 19:48] VITALS: RESP 18
[2022-08-16] MEDS: ATORVASTATIN CA 40 MG TABLET (FP) PO SCH (21:15)
[2022-08-17] MEDS: SODIUM CHLORIDE 1,000 ML IV SCH (02:48)
[2022-08-17] MEDS: MAG HYDROX/AL HYDROX/SIMETH 30 ML UNIT-DOSE CUP PO SCH (05:25)
[2022-08-17 06:13] VITALS: BP 118/70; PULSE 86; TEMP 97.6
[2022-08-17] MEDS: THIAMINE HCL 100 MG TABLET (FP) PO SCH (09:44)
[2022-08-17] MEDS: ASPIRIN COATED 81 MG TABLET.EC PO SCH (09:44)
[2022-08-17] MEDS: PANTOPRAZOLE 40 MG TABLET PO SCH (09:44)
[2022-08-17] MEDS: NICOTINE 14 MG/24 HOURS TOPICAL PATCH TD SCH (09:44)
[2022-08-17] MEDS: chlordiazePOXIDE HCL 10 MG CAPSULE PO SCH (09:44)
[2022-08-17] MEDS: ARIPiprazole 10 MG TABLET PO SCH (09:44)
[2022-08-17] MEDS: FOLIC ACID 1 MG TABLET (FP) PO SCH (09:44)
[2022-08-17] MEDS: METOPROLOL TARTRATE 50 MG TABLET (FP) PO SCH (09:44)
== END 2022-08-17 10:10 | disposition home or self-care (01) | DRG 310 ==
LOC: JER 10:12 → JERBED 14:10 → J4S 15:39
PROVIDERS: ADMIT Family Medicine; ATTEND Family Medicine
DX: R00.2 Palpitations (principal); I10 Essential (primary) hypertension; I25.10 Atherosclerotic heart disease of native coronary artery without angina pectoris; E78.5 Hyperlipidemia, unspecified; J44.9 Chronic obstructive pulmonary disease, unspecified; I48.0 Paroxysmal atrial fibrillation; I49.3 Ventricular premature depolarization; F17.210 Nicotine dependence, cigarettes, uncomplicated; F41.8 Other specified anxiety disorders; Z98.84 Bariatric surgery status; Z86.718 Personal history of other venous thrombosis and embolism
CPT/HCPCS: 0241U-QW; 36415; 71045-TC-FY; 71250-TC; 76775-TC; 78452-TC; 80053; 80061; 81003; 82043; 82550; 82570; 83036; 83540; 83550; 83735; 83880; 84100; 84443; 84484; 85025; 85027; 85610; 85730; 86850; 86900; 86901; 87086; 93005; 93010; 93017; 93306-TC; 93880-TC; 99285-25; A9502; J1756; J2785

== ENCOUNTER 2022-09-23 12:41 | Observation (INO) | payer OTHER ==
[2022-09-23 13:42] LABS: BASO % 1.2 % (0-2.0); EOS % 2.1 % (0-4.5); HEMATOCRIT 43.1 % (35.4-49); HEMOGLOBIN 14.8 GM/dL (11.7-16.9); LYMPH % 30.5 % (8-40); MCHC 34.4 g/dl (32.0-35.9); MEAN CELL VOLUME 90.2 fl (80-96); MEAN PLT VOLUME 9.5 fl (7.5-11.1); MONO % 10.2 % (3.8-10.2); PLATELET COUNT 207 10^3/uL (134-434); RBC 4.78 M/mm3 (4.00-5.60); RDW 13.8 % (11.9-15.9); WHITE BLOOD COUNT 7.8 K/mm3 (4.0-10.0)
[2022-09-23] MEDS ORDERED: SODIUM CHLORIDE 1,000 ML IV SCH (13:45)
[2022-09-23 13:55] LABS: INR 1.14 (0.83-1.09); PROTHROMBIN TIME (PATIENT) 13.2 SEC (9.7-13.0)
[2022-09-23 13:58] LABS: ACTIVATED PTT 27.6 SECONDS (25.2-36.5)
[2022-09-23 14:02] LABS: POTASSIUM 4.7 mmol/L (3.5-5.1)
[2022-09-23 14:04] LABS: ALBUMIN 3.6 g/dl (3.4-5.0); BLOOD UREA NITROGEN 16.3 mg/dL (7-18); CALCIUM 9.2 mg/dL (8.5-10.1)
[2022-09-23 14:07] LABS: CREATININE 0.7 mg/dL (0.55-1.3)
[2022-09-23 14:09] LABS: BILIRUBIN,TOTAL 0.6 mg/dL (0.2-1)
[2022-09-23 15:46] LABS: INR 1.11 (0.83-1.09); PROTHROMBIN TIME (PATIENT) 12.9 SEC (9.7-13.0)
[2022-09-23 15:49] LABS: ACTIVATED PTT 27.1 SECONDS (25.2-36.5)
[2022-09-23] MEDS ORDERED: ACETAMINOPHEN 1000 MG/100 ML BAG IVPB ONE (17:34)
[2022-09-23] MEDS ORDERED: ACETAMINOPHEN INJECTION 100 ML IVPB ONE (17:35)
[2022-09-23] MEDS ORDERED: ACETAMINOPHEN 325 MG TABLET (FP) PO PRN (18:34)
[2022-09-23] MEDS ORDERED: ASPIRIN COATED 81 MG TABLET.EC PO SCH (18:45)
[2022-09-23] MEDS ORDERED: ASPIRIN COATED 81 MG TABLET.EC ONE (18:48)
[2022-09-23 19:27] LABS: PH,URINE 5.5 (5.0-8.0); URINE APPEARANCE CLEAR; URINE BILIRUBIN NEGATIVE (NEGATIVE); URINE COLOR ORANGE; URINE GLUCOSE (UA) NEGATIVE (NEGATIVE); URINE KETONE NEGATIVE (NEGATIVE); URINE LEUK ESTERASE NEGATIVE (NEGATIVE); URINE NITRITE NEGATIVE (NEGATIVE); URINE PROTEIN NEGATIVE (NEGATIVE)
[2022-09-23 20:20] LABS: URINE BENZODIAZEPINES NEGATIVE (NEGATIVE)
[2022-09-23 20:21] LABS: METHADONE, UR NEGATIVE (NEGATIVE); URINE AMPHETAMINES NEGATIVE (NEGATIVE)
[2022-09-23 20:22] LABS: COCAINE, UR NEGATIVE (NEGATIVE); OPIATES, URI NEGATIVE (NEGATIVE); PHENCYCLIDINE,URINE NEGATIVE (NEGATIVE); URINE BARBITURATES NEGATIVE (NEGATIVE)
[2022-09-23] MEDS ORDERED: QUEtiapine FUMARATE 50 MG TABLET PO SCH (22:00)
[2022-09-23 22:07] LABS: POTASSIUM 4.1 mmol/L (3.5-5.1)
[2022-09-23 22:09] LABS: BLOOD UREA NITROGEN 16.3 mg/dL (7-18)
[2022-09-23 22:12] LABS: CREATININE 0.7 mg/dL (0.55-1.3); PHOSPHOROUS 5.1 mg/dL (2.5-4.9)
[2022-09-23 22:15] LABS: CALCIUM 8.6 mg/dL (8.5-10.1)
[2022-09-23] MEDS ORDERED: ARIPiprazole 10 MG TABLET PO SCH (22:17)
[2022-09-24 01:30] VITALS: PULSE 73; BMI 29.0
[2022-09-24 05:59] VITALS: BP 135/55; RESP 16; TEMP 98.6
[2022-09-24 07:28] LABS: EOS % 3.2 % (0-4.5); HEMATOCRIT 42.7 % (35.4-49); HEMOGLOBIN 14.8 GM/dL (11.7-16.9); MCH 31.4 pg (25.7-33.7); MCHC 34.6 g/dl (32.0-35.9); MEAN CELL VOLUME 90.8 fl (80-96); MEAN PLT VOLUME 9.5 fl (7.5-11.1); MONO % 8.9 % (3.8-10.2); NEUT % 60.9 % (42.8-82.8); PLATELET COUNT 192 10^3/uL (134-434); RBC 4.71 M/mm3 (4.00-5.60); WHITE BLOOD COUNT 8.5 K/mm3 (4.0-10.0)
[2022-09-24 07:42] LABS: POTASSIUM 4.1 mmol/L (3.5-5.1)
[2022-09-24 07:44] LABS: CALCIUM 8.9 mg/dL (8.5-10.1)
[2022-09-24 07:45] LABS: ALBUMIN 3.4 g/dl (3.4-5.0); BLOOD UREA NITROGEN 15.2 mg/dL (7-18)
[2022-09-24 07:48] LABS: CREATININE 0.7 mg/dL (0.55-1.3); PHOSPHOROUS 4.7 mg/dL (2.5-4.9)
[2022-09-24 07:49] LABS: TOT PROT 6.6 g/dl (6.4-8.2)
[2022-09-24] MEDS ORDERED: ENOXAPARIN NA (PORCINE) 40 MG/0.4 ML DISP.SYRIN SQ SCH (10:00)
[2022-09-24] MEDS ORDERED: ATORVASTATIN CA 40 MG TABLET (FP) PO SCH (10:00)
== END 2022-09-24 08:42 | disposition home or self-care (01) ==
LOC: JER 12:41 → JERBED 18:13 → J4S 20:55
PROVIDERS: ADMIT Student in an Organized Health Care Education/Training Program; ATTEND Family Medicine
PROC: 3E033NZ Introduction of Analgesics, Hypnotics, Sedatives into Peripheral Vein, Percutaneous Approach (ICD-10-PCS; principal; 2022-09-23)
DX: R29.810 Facial weakness (principal); F41.9 Anxiety disorder, unspecified; F32.A Depression, unspecified; I10 Essential (primary) hypertension; R00.1 Bradycardia, unspecified; E78.5 Hyperlipidemia, unspecified; I48.0 Paroxysmal atrial fibrillation; F17.210 Nicotine dependence, cigarettes, uncomplicated; Z86.718 Personal history of other venous thrombosis and embolism; Z95.828 Presence of other vascular implants and grafts; Z98.84 Bariatric surgery status
CPT/HCPCS: 36415; 70450-TC; 70551-TC; 71045-TC-FY; 80048; 80053; 80061; 80307; 81003; 83036; 83735; 84100; 84443; 84484; 85025; 85610; 85730; 86850; 86900; 86901; 87635; 93005; 93010; 93880-TC; 96374; 99285-25; G0378

== ENCOUNTER 2022-12-04 22:54 | Observation (INO) | payer OTHER ==
[2022-12-04 23:18] VITALS: BMI 27.8
[2022-12-05 01:32] LABS: BASO % 0.3 % (0-2.0); EOS % 2.6 % (0-4.5); HEMATOCRIT 45.2 % (35.4-49); HEMOGLOBIN 14.9 GM/dL (11.7-16.9); LYMPH % 19.6 % (8-40); MCH 30.5 pg (25.7-33.7); MEAN CELL VOLUME 92.5 fl (80-96); MEAN PLT VOLUME 9.7 fl (7.5-11.1); MONO % 7.6 % (3.8-10.2); NEUT % 69.9 % (42.8-82.8); PLATELET COUNT 203 10^3/uL (134-434); RBC 4.89 M/mm3 (4.00-5.60); RDW 13.7 % (11.9-15.9); WHITE BLOOD COUNT 11.2 K/mm3 (4.0-10.0)
[2022-12-05] MEDS ORDERED: ACETAMINOPHEN 1000 MG/100 ML BAG IVPB ONE (01:36)
[2022-12-05] MEDS ORDERED: ACETAMINOPHEN INJECTION 100 ML IVPB ONE (01:51)
[2022-12-05 02:04] LABS: CHLORIDE 110 mmol/L (98-107); POTASSIUM 4.4 mmol/L (3.5-5.1); SODIUM 139 mmol/L (136-145)
[2022-12-05 02:06] LABS: CALCIUM 8.2 mg/dL (8.5-10.1)
[2022-12-05 02:07] LABS: ALBUMIN 3.2 g/dl (3.4-5.0); ANION GAP 6 MMOL/L (8-16); BLOOD UREA NITROGEN 12.3 mg/dL (7-18); CO2 22 mmol/L (21-32); GLUCOSE,RANDOM 137 mg/dL (74-106); MAGNESIUM 1.7 mg/dL (1.8-2.4)
[2022-12-05 02:10] LABS: CREATININE 0.8 mg/dL (0.55-1.3); SGOT/AST 21 U/L (15-37); SGPT/ALT 16 U/L (13-61)
[2022-12-05 02:12] LABS: BILIRUBIN,TOTAL 0.3 mg/dL (0.2-1); TOT PROT 6.7 g/dl (6.4-8.2)
[2022-12-05 02:13] LABS: ALK PHOS 33 U/L (45-117)
[2022-12-05] MEDS ORDERED: MAGNESIUM SULFATE IN WATER 2 GM/50 ML IVPB IVPB ONE ×2 (02:51→03:52)
[2022-12-05 03:03] LABS: ACTIVATED PTT 28.3 SECONDS (25.2-36.5); INR 1.05 (0.83-1.09); PROTHROMBIN TIME (PATIENT) 12.2 SEC (9.7-13.0)
[2022-12-05] MEDS ORDERED: ASPIRIN 81 MG CHEWABLE TABLETS PO ONE (03:27)
[2022-12-05 03:30] LABS: POTASSIUM 4.2 mmol/L (3.5-5.1)
[2022-12-05 03:32] LABS: ALBUMIN 3.3 g/dl (3.4-5.0); CALCIUM 8.1 mg/dL (8.5-10.1)
[2022-12-05 03:35] LABS: CREATININE 0.7 mg/dL (0.55-1.3)
[2022-12-05 03:37] LABS: TOT PROT 6.4 g/dl (6.4-8.2)
[2022-12-05 03:42] LABS: URINE APPEARANCE CLEAR; URINE BILIRUBIN NEGATIVE (NEGATIVE); URINE COLOR YELLOW; URINE GLUCOSE (UA) NEGATIVE (NEGATIVE); URINE KETONE NEGATIVE (NEGATIVE); URINE LEUK ESTERASE NEGATIVE (NEGATIVE); URINE NITRITE NEGATIVE (NEGATIVE); URINE PROTEIN NEGATIVE (NEGATIVE)
[2022-12-05 03:49] LABS: BILIRUBIN,TOTAL 0.2 mg/dL (0.2-1)
[2022-12-05] MEDS ORDERED: ASPIRIN 81 MG CHEWABLE TABLETS ONE (03:52)
[2022-12-05] MEDS ORDERED: traMADol HCL 50 MG TABLET PO ONE (04:16)
[2022-12-05] MEDS ORDERED: METOPROLOL TARTRATE 50 MG TABLET (FP) PO SCH (10:00)
[2022-12-05 10:22] VITALS: RESP 20
[2022-12-05 10:37] LABS: BASO % 1.3 % (0-2.0); EOS % 2.5 % (0-4.5); HEMOGLOBIN 15.4 GM/dL (11.7-16.9); LYMPH % 30.7 % (8-40); MCH 30.5 pg (25.7-33.7); MCHC 32.8 g/dl (32.0-35.9); MEAN PLT VOLUME 9.2 fl (7.5-11.1); MONO % 9.9 % (3.8-10.2); NEUT % 55.6 % (42.8-82.8); PLATELET COUNT 245 10^3/uL (134-434); RBC 5.06 M/mm3 (4.00-5.60); RDW 13.8 % (11.9-15.9); WHITE BLOOD COUNT 9.1 K/mm3 (4.0-10.0)
[2022-12-05 13:51] VITALS: BP 109/86; PULSE 47; TEMP 98.4
[2022-12-05] MEDS ORDERED: ATORVASTATIN CA 40 MG TABLET (FP) PO SCH (22:00)
[2022-12-06] MEDS ORDERED: ASPIRIN 81 MG CHEWABLE TABLETS PO SCH (10:00)
== END 2022-12-05 14:12 | disposition home or self-care (01) ==
LOC: JER 22:54 → JERBED 12-05 03:29
PROVIDERS: ADMIT Internal Medicine; ATTEND Family Medicine
PROC: 3E033NZ Introduction of Analgesics, Hypnotics, Sedatives into Peripheral Vein, Percutaneous Approach (ICD-10-PCS; principal; 2022-12-05)
PROC: 3E033GC Introduction of Other Therapeutic Substance into Peripheral Vein, Percutaneous Approach (ICD-10-PCS; 2022-12-05)
DX: R00.1 Bradycardia, unspecified (principal); I25.10 Atherosclerotic heart disease of native coronary artery without angina pectoris; I10 Essential (primary) hypertension; Z98.84 Bariatric surgery status; G47.30 Sleep apnea, unspecified; I48.0 Paroxysmal atrial fibrillation; F32.A Depression, unspecified; E78.5 Hyperlipidemia, unspecified; I82.90 Acute embolism and thrombosis of unspecified vein; F17.200 Nicotine dependence, unspecified, uncomplicated; I65.21 Occlusion and stenosis of right carotid artery; Z86.718 Personal history of other venous thrombosis and embolism
CPT/HCPCS: 36415; 71045-TC-FY; 80053; 80307; 81003; 82550; 83735; 84436; 84439; 84443; 84484; 85025; 85610; 85730; 87086; 93005; 93010; 96365; 96375; 99285-25; G0378

== ENCOUNTER 2023-05-09 18:22 | Emergency (ER) | payer OTHER ==
[2023-05-09 18:35] VITALS: RESP 18; BMI 26.9
[2023-05-09 19:56] LABS: BASO % 1.1 % (0-2.0); EOS % 2.7 % (0-4.5); HEMATOCRIT 45.3 % (35.4-49); HEMOGLOBIN 14.9 GM/dL (11.7-16.9); LYMPH % 34.8 % (8-40); MCH 30.5 pg (25.7-33.7); MCHC 32.9 g/dl (32.0-35.9); MEAN CELL VOLUME 92.6 fl (80-96); MONO % 9.1 % (3.8-10.2); NEUT % 52.3 % (42.8-82.8); PLATELET COUNT 232 10^3/uL (134-434); RBC 4.89 M/mm3 (4.00-5.60); RDW 13.8 % (11.9-15.9); WHITE BLOOD COUNT 9.1 K/mm3 (4.0-10.0)
[2023-05-09 20:01] LABS: CALCIUM 8.6 mg/dL (8.5-10.1)
[2023-05-09 20:02] LABS: ALBUMIN 3.4 g/dl (3.4-5.0); BLOOD UREA NITROGEN 11.8 mg/dL (7-18); MAGNESIUM 2.2 mg/dL (1.8-2.4)
[2023-05-09 20:04] LABS: CREATININE 0.7 mg/dL (0.55-1.3)
[2023-05-09 20:06] LABS: BILIRUBIN,TOTAL 0.4 mg/dL (0.2-1)
[2023-05-09 20:08] LABS: INR 1.06 (0.83-1.09); PROTHROMBIN TIME (PATIENT) 12.3 SEC (9.7-13.0)
[2023-05-09 20:10] LABS: ACTIVATED PTT 26.8 SECONDS (25.2-36.5)
[2023-05-09 20:43] LABS: PHOSPHOROUS 3.9 mg/dL (2.5-4.9)
[2023-05-09 21:45] VITALS: BP 125/75; PULSE 90; TEMP 98.4
== END 2023-05-09 22:04 | disposition left against medical advice (07) ==
LOC: JER 18:22
DX: R00.1 Bradycardia, unspecified (principal); R53.1 Weakness; R42 Dizziness and giddiness
CPT/HCPCS: 36415; 71046-TC-FY; 80053; 80307; 82550; 82962; 83735; 84100; 84484; 85025; 85610; 85730; 93005; 93010; 99285-25

== ENCOUNTER 2023-06-17 19:22 | Emergency (ER) | payer OTHER ==
[2023-06-17 19:34] VITALS: BP 157/97; PULSE 53; RESP 20; TEMP 97.9; BMI 26.6
[2023-06-17] MEDS ORDERED: ACETAMINOPHEN 325 MG TABLET (FP) ONE (19:59)
[2023-06-17] MEDS ORDERED: LIDOCAINE 4% PATCH TP ONE (19:59)
[2023-06-17] MEDS: ACETAMINOPHEN 325 MG TABLET (FP) PO ONE (20:03)
[2023-06-17] MEDS: LIDOCAINE 5% TOPICAL PATCH TP ONE (20:03)
[2023-06-17] MEDS ORDERED: KETOROLAC TROMETHAMINE 30 MG/1 ML VIAL ONE (21:14)
[2023-06-17] MEDS: KETOROLAC TROMETHAMINE 30 MG/1 ML VIAL IM ONE (21:20)
== END 2023-06-17 21:22 | disposition home or self-care (01) ==
LOC: JER 19:22
PROC: 3E0233Z Introduction of Anti-inflammatory into Muscle, Percutaneous Approach (ICD-10-PCS; principal; 2023-06-17)
DX: S09.90XA Unspecified injury of head, initial encounter (principal); R51.9 Headache, unspecified; W00.0XXA Fall on same level due to ice and snow, initial encounter
CPT/HCPCS: 70450-TC; 72125-TC; 99284-25

== ENCOUNTER 2023-06-18 10:14 | Emergency (ER) | payer OTHER ==
[2023-06-18 10:19] VITALS: BP 166/95; PULSE 77; RESP 18; TEMP 98.2; BMI 26.6
[2023-06-18 11:34] LABS: BASO % 0.8 % (0-2.0); EOS % 1.5 % (0-4.5); HEMATOCRIT 44.1 % (35.4-49); HEMOGLOBIN 14.7 GM/dL (11.7-16.9); LYMPH % 31.2 % (8-40); MCH 31.1 pg (25.7-33.7); MCHC 33.3 g/dl (32.0-35.9); MEAN CELL VOLUME 93.4 fl (80-96); MEAN PLT VOLUME 8.9 fl (7.5-11.1); MONO % 10.5 % (3.8-10.2); PLATELET COUNT 232 10^3/uL (134-434); RBC 4.72 M/mm3 (4.00-5.60); RDW 13.2 % (11.9-15.9); WHITE BLOOD COUNT 9.4 K/mm3 (4.0-10.0)
[2023-06-18 11:44] LABS: POTASSIUM 4.1 mmol/L (3.5-5.1)
[2023-06-18 11:45] LABS: ALBUMIN 3.6 g/dl (3.4-5.0); CALCIUM 8.7 mg/dL (8.5-10.1)
[2023-06-18 11:46] LABS: MAGNESIUM 1.9 mg/dL (1.8-2.4)
[2023-06-18 11:49] LABS: CREATININE 0.8 mg/dL (0.55-1.3)
[2023-06-18] MEDS ORDERED: ACETAMINOPHEN 500 MG TABLET (FP) ONE (11:49)
[2023-06-18 11:50] LABS: TOT PROT 7.2 g/dl (6.4-8.2)
[2023-06-18] MEDS: ACETAMINOPHEN 500 MG TABLET (FP) PO ONE (11:50)
== END 2023-06-18 13:43 | disposition home or self-care (01) ==
LOC: JER 10:14
DX: S09.90XA Unspecified injury of head, initial encounter (principal); S69.92XA Unspecified injury of left wrist, hand and finger(s), initial encounter; R00.1 Bradycardia, unspecified; W01.0XXA Fall on same level from slipping, tripping and stumbling without subsequent striking against object, initial encounter
CPT/HCPCS: 36415; 70450-TC; 73110-TC-LT-FY; 73130-TC-LT-FY; 80053; 83735; 84484; 85025; 93005; 93010; 99285-25

== ENCOUNTER 2023-10-09 01:54 | Emergency (ER) | payer OTHER ==
[2023-10-09 02:05] VITALS: BP 124/84; PULSE 50; RESP 14; TEMP 98.5; BMI 25.7
== END 2023-10-09 06:29 | disposition home or self-care (01) ==
LOC: FER 01:54
DX: F41.9 Anxiety disorder, unspecified (principal)
CPT/HCPCS: 99283-25

== ENCOUNTER 2023-10-15 19:34 | Emergency (ER) | payer OTHER ==
[2023-10-15 19:49] VITALS: BP 139/80; PULSE 42; RESP 16; TEMP 99.2; BMI 24.3
[2023-10-15] MEDS ORDERED: LORazepam 0.5 MG TABLET ONE (19:50)
[2023-10-15] MEDS: LORazepam 0.5 MG TABLET PO ONE (19:52)
== END 2023-10-15 23:13 | disposition home or self-care (01) ==
LOC: FER 19:34
DX: F43.9 Reaction to severe stress, unspecified (principal)
CPT/HCPCS: 93005; 99283-25

== ENCOUNTER 2023-10-20 19:06 | Emergency (ER) | payer OTHER ==
[2023-10-20 19:12] VITALS: BP 141/72; PULSE 54; RESP 18; TEMP 98.9; BMI 23.1
[2023-10-20] MEDS: ACETAMINOPHEN 1000 MG/100 ML BAG IVPB ONE (20:27)
[2023-10-20] MEDS ORDERED: ACETAMINOPHEN INJECTION 100 ML IVPB ONE (20:30)
[2023-10-20 20:45] LABS: EOS % 1.8 % (0-4.5); HEMATOCRIT 42.1 % (35.4-49); HEMOGLOBIN 14.4 GM/dL (11.7-16.9); LYMPH % 22.7 % (8-40); MCH 31.3 pg (25.7-33.7); MCHC 34.2 g/dl (32.0-35.9); MEAN CELL VOLUME 91.4 fl (80-96); MEAN PLT VOLUME 8.4 fl (7.5-11.1); NEUT % 64.5 % (42.8-82.8); PLATELET COUNT 228 10^3/uL (134-434); RDW 13.5 % (11.9-15.9); WHITE BLOOD COUNT 8.6 K/mm3 (4.0-10.0)
[2023-10-20 21:02] LABS: POTASSIUM 4.3 mmol/L (3.5-5.1)
[2023-10-20 21:03] LABS: CALCIUM 8.3 mg/dL (8.5-10.1)
[2023-10-20 21:04] LABS: ALBUMIN 3.6 g/dl (3.4-5.0); BLOOD UREA NITROGEN 13.1 mg/dL (7-18)
[2023-10-20 21:07] LABS: CREATININE 0.7 mg/dL (0.55-1.3)
[2023-10-20 21:09] LABS: BILIRUBIN,TOTAL 0.5 mg/dL (0.2-1); TOT PROT 7.1 g/dl (6.4-8.2)
[2023-10-20] MEDS ORDERED: FAMOTIDINE 20 MG/50 ML IVPB 20 MG/50 ML MG IVPB ONE (22:25)
[2023-10-20] MEDS: MAG HYDROX/AL HYDROX/SIMETH 30 ML UNIT-DOSE CUP PO ONE (22:32)
== END 2023-10-20 22:43 | disposition home or self-care (01) ==
LOC: JER 19:06
PROC: 3E033NZ Introduction of Analgesics, Hypnotics, Sedatives into Peripheral Vein, Percutaneous Approach (ICD-10-PCS; principal; 2023-10-20)
DX: R10.30 Lower abdominal pain, unspecified (principal); R19.7 Diarrhea, unspecified
CPT/HCPCS: 36415; 76705-TC; 80053; 83690; 84484; 85025; 93005; 93010; 99285-25; J0131

== ENCOUNTER 2023-10-21 04:08 | Emergency (ER) | payer OTHER ==
[2023-10-21 04:10] VITALS: BP 132/81; PULSE 78; RESP 20; TEMP 98; BMI 23.7
[2023-10-21 05:45] LABS: BASO % 1.2 % (0-2.0); EOS % 2.6 % (0-4.5); HEMATOCRIT 44.6 % (35.4-49); HEMOGLOBIN 15.1 GM/dL (11.7-16.9); LYMPH % 30.9 % (8-40); MCH 31.5 pg (25.7-33.7); MCHC 33.8 g/dl (32.0-35.9); MEAN CELL VOLUME 93.2 fl (80-96); MEAN PLT VOLUME 9.1 fl (7.5-11.1); MONO % 11.2 % (3.8-10.2); NEUT % 54.1 % (42.8-82.8); PLATELET COUNT 235 10^3/uL (134-434); RBC 4.78 M/mm3 (4.00-5.60); RDW 13.2 % (11.9-15.9); WHITE BLOOD COUNT 6.9 K/mm3 (4.0-10.0)
[2023-10-21 06:08] LABS: POTASSIUM 4.7 mmol/L (3.5-5.1)
[2023-10-21 06:10] LABS: CALCIUM 8.9 mg/dL (8.5-10.1)
[2023-10-21 06:11] LABS: BLOOD UREA NITROGEN 13.4 mg/dL (7-18)
[2023-10-21 06:13] LABS: CREATININE 0.8 mg/dL (0.55-1.3)
[2023-10-21 06:15] LABS: BILIRUBIN,TOTAL 0.8 mg/dL (0.2-1); TOT PROT 7.5 g/dl (6.4-8.2)
[2023-10-21] MEDS: FOLIC ACID INJECTION - 1 MG, THIAMINE HCL 100 MG, MULTIVIT INJECTION ADULT 10 ML in SOD... IVPB ONE (06:20)
== END 2023-10-21 06:20 | disposition home or self-care (01) ==
LOC: JER 04:08
DX: G47.00 Insomnia, unspecified (principal); J43.9 Emphysema, unspecified; R06.02 Shortness of breath; R07.9 Chest pain, unspecified; R11.0 Nausea; R61 Generalized hyperhidrosis
CPT/HCPCS: 36415; 71250-TC; 80053; 84484; 85025; 93005; 93010; 99285-25

== ENCOUNTER 2023-10-21 13:33 | Emergency (ER) | payer OTHER ==
[2023-10-21 13:52] VITALS: BP 118/70; PULSE 63; RESP 18; TEMP 99.4; BMI 25.0
[2023-10-21 14:53] LABS: HEMOGLOBIN 15.2 G/dL (11.7-16.9); MCH 30.4 pg (25.7-33.7); MCHC 32.3 g/dl (32.0-35.9); MEAN PLT VOLUME 8.8 fl (7.5-11.1); PLATELET COUNT 224.4 10^3/uL (134-434); RDW 14.1 % (11.9-15.9); WHITE BLOOD COUNT 8.9 10^3/uL (4.0-10.8)
[2023-10-21 14:57] LABS: PLATELET ESTIMATE ADEQUATE
[2023-10-21 15:01] LABS: BILIRUBIN,TOTAL 0.5 mg/dl (0.2-1); CREATININE 0.7 mg/dl (0.6-1.3); POTASSIUM 3.9 mmol/L (3.5-5.1); TOT PROT 6.8 g/dl (6.4-8.2)
[2023-10-21] MEDS: SODIUM CHLORIDE 0.9% 1000 ML INFUS.BAG IV ONE (15:35)
== END 2023-10-21 18:10 | disposition home or self-care (01) ==
LOC: FER 13:33
DX: R00.2 Palpitations (principal); F10.90 Alcohol use, unspecified, uncomplicated; Y90.9 Presence of alcohol in blood, level not specified
CPT/HCPCS: 36415; 80053; 82962; 84484; 85027; 93005; 99284-25

== ENCOUNTER 2023-10-21 21:47 | Emergency (ER) | payer OTHER ==
[2023-10-21 21:56] VITALS: BMI 24.4
[2023-10-21] MEDS ORDERED: ACETAMINOPHEN INJECTION 100 ML IVPB ONE (22:20)
[2023-10-21] MEDS: ACETAMINOPHEN 1000 MG/100 ML BAG IVPB ONE (22:36)
[2023-10-21 22:46] LABS: BASO % 1.3 % (0-2.0); EOS % 2.1 % (0-4.5); HEMATOCRIT 41.7 % (35.4-49); HEMOGLOBIN 14.1 GM/dL (11.7-16.9); LYMPH % 31.7 % (8-40); MCH 30.9 pg (25.7-33.7); MCHC 33.8 g/dl (32.0-35.9); MEAN CELL VOLUME 91.5 fl (80-96); MEAN PLT VOLUME 8.5 fl (7.5-11.1); MONO % 10.1 % (3.8-10.2); NEUT % 54.8 % (42.8-82.8); PLATELET COUNT 215 10^3/uL (134-434); RBC 4.56 M/mm3 (4.00-5.60); RDW 13.8 % (11.9-15.9); WHITE BLOOD COUNT 7.4 K/mm3 (4.0-10.0)
[2023-10-21 23:11] LABS: CALCIUM 8.3 mg/dL (8.5-10.1)
[2023-10-21 23:12] LABS: ALBUMIN 3.3 g/dl (3.4-5.0)
[2023-10-21 23:15] LABS: CREATININE 0.6 mg/dL (0.55-1.3)
[2023-10-21 23:17] LABS: BILIRUBIN,TOTAL 0.4 mg/dL (0.2-1); TOT PROT 6.6 g/dl (6.4-8.2)
[2023-10-22 06:18] VITALS: BP 109/59; PULSE 72; RESP 13; TEMP 98.1
== END 2023-10-22 08:24 | disposition home or self-care (01) ==
LOC: JER 21:47
PROC: 3E033NZ Introduction of Analgesics, Hypnotics, Sedatives into Peripheral Vein, Percutaneous Approach (ICD-10-PCS; principal; 2023-10-21)
DX: F10.929 Alcohol use, unspecified with intoxication, unspecified (principal); Y90.2 Blood alcohol level of 40-59 mg/100 ml; R51.9 Headache, unspecified; R10.13 Epigastric pain; R10.33 Periumbilical pain; R07.9 Chest pain, unspecified; R00.1 Bradycardia, unspecified
CPT/HCPCS: 36415; 80053; 80307; 83690; 83735; 84484; 85025; 93005; 93010; 99284-25; J0131

== ENCOUNTER 2024-01-12 20:53 | Emergency (ER) | payer OTHER ==
[2024-01-12 21:01] VITALS: BP 122/79; PULSE 77; RESP 18; TEMP 98.4; BMI 24.4
== END 2024-01-13 05:10 | disposition home or self-care (01) ==
LOC: FER 20:53
DX: F10.129 Alcohol abuse with intoxication, unspecified (principal); Y90.9 Presence of alcohol in blood, level not specified
CPT/HCPCS: 99282-25

== ENCOUNTER 2024-01-13 15:43 | Emergency (ER) | payer OTHER ==
[2024-01-13 16:03] VITALS: BP 120/69; PULSE 85; RESP 18; TEMP 98.4; BMI 27.3
== END 2024-01-13 17:47 | disposition home or self-care (01) ==
LOC: JER 15:43
DX: S00.461A Insect bite (nonvenomous) of right ear, initial encounter (principal); F10.920 Alcohol use, unspecified with intoxication, uncomplicated; W57.XXXA Bitten or stung by nonvenomous insect and other nonvenomous arthropods, initial encounter; Y90.9 Presence of alcohol in blood, level not specified
CPT/HCPCS: 99283-25; 99284-25

== ENCOUNTER 2024-01-26 16:18 | Emergency (ER) | payer OTHER ==
[2024-01-26 16:39] VITALS: BMI 24.3
[2024-01-26 16:42] LABS: HEMATOCRIT 45.1 % (35.4-49); HEMOGLOBIN 14.6 G/dL (11.7-16.9); MCH 30.9 pg (25.7-33.7); MCHC 32.4 g/dl (32.0-35.9); MEAN CELL VOLUME 95.5 fl (80-96); MEAN PLT VOLUME 8.7 fl (7.5-11.1); PLATELET COUNT 193.4 10^3/uL (134-434); RBC 4.72 10^6/uL (4.00-5.60); RDW 14.8 % (11.9-15.9)
[2024-01-26 17:07] LABS: BILIRUBIN,TOTAL 0.4 mg/dl (0.2-1); CALCIUM 8.7 mg/dl (8.5-10.1); CREATININE 0.7 mg/dl (0.6-1.3); POTASSIUM 3.7 mmol/L (3.5-5.1); TOT PROT 6.7 g/dl (6.4-8.2)
[2024-01-26 17:15] LABS: PLATELET ESTIMATE ADEQUATE
[2024-01-26 22:48] LABS: COCAINE, UR NEGATIVE (NEGATIVE); URINE AMPHETAMINES NEGATIVE (NEGATIVE); URINE BARBITURATES NEGATIVE (NEGATIVE)
[2024-01-26 22:49] LABS: METHADONE, UR NEGATIVE (NEGATIVE); PHENCYCLIDINE,URINE NEGATIVE (NEGATIVE); URINE BENZODIAZEPINES NEGATIVE (NEGATIVE)
[2024-01-26 22:52] LABS: OPIATES, URI NEGATIVE (NEGATIVE)
[2024-01-27 07:04] VITALS: BP 141/95; PULSE 74; RESP 18; TEMP 99.1
== END 2024-01-27 09:04 | disposition home or self-care (01) ==
LOC: FER 16:18 → SUPCPDRO 16:18 → FER 01-27 09:04
DX: F32.A Depression, unspecified (principal); Z20.822 Contact with and (suspected) exposure to COVID-19
CPT/HCPCS: 36415; 80053; 80307; 81003; 85027; 87635; 99283-25

== ENCOUNTER 2024-02-21 21:09 | Emergency (ER) | payer OTHER ==
[2024-02-21 21:16] VITALS: TEMP 97.6; BMI 25.0
[2024-02-21 22:26] LABS: BASO % 0.7 % (0-2.0); EOS % 2.3 % (0-4.5); HEMOGLOBIN 14.1 GM/dL (11.7-16.9); LYMPH % 32.8 % (8-40); MCH 31.2 pg (25.7-33.7); MCHC 33.7 g/dl (32.0-35.9); MEAN CELL VOLUME 92.5 fl (80-96); MEAN PLT VOLUME 8.9 fl (7.5-11.1); MONO % 9.5 % (3.8-10.2); NEUT % 54.7 % (42.8-82.8); PLATELET COUNT 200 10^3/uL (134-434); RBC 4.54 M/mm3 (4.00-5.60); RDW 13.8 % (11.9-15.9); WHITE BLOOD COUNT 10.1 K/mm3 (4.0-10.0)
[2024-02-21 22:44] LABS: POTASSIUM 3.7 mmol/L (3.5-5.1)
[2024-02-21 22:46] LABS: ALBUMIN 3.8 g/dl (3.4-5.0); BLOOD UREA NITROGEN 18.2 mg/dL (7-18); CALCIUM 8.7 mg/dL (8.5-10.1); MAGNESIUM 2.2 mg/dL (1.8-2.4)
[2024-02-21 22:50] LABS: CREATININE 0.7 mg/dL (0.55-1.3)
[2024-02-21 22:51] LABS: BILIRUBIN,TOTAL 0.5 mg/dL (0.2-1)
[2024-02-22] MEDS ORDERED: ACETAMINOPHEN 325 MG TABLET (FP) ONE (00:50)
[2024-02-22] MEDS: ACETAMINOPHEN 325 MG TABLET (FP) PO ONE (00:54)
[2024-02-22 02:02] VITALS: BP 114/75; PULSE 91; RESP 16
== END 2024-02-22 02:00 | disposition home or self-care (01) ==
LOC: JER 21:09
DX: R00.2 Palpitations (principal)
CPT/HCPCS: 36415; 71046-TC-FY; 80053; 83735; 84484; 85025; 93005; 93010; 93971-TC; 99285-25

== ENCOUNTER 2024-04-10 07:26 | Emergency (ER) | payer OTHER ==
[2024-04-10 07:33] VITALS: RESP 18; BMI 25.4
[2024-04-10 08:04] VITALS: TEMP 98.2
[2024-04-10] MEDS ORDERED: METOPROLOL TARTRATE 25 MG TABLET (FP) ONE (08:47)
[2024-04-10] MEDS: METOPROLOL TARTRATE 25 MG TABLET (FP) PO ONE (09:00)
[2024-04-10 09:10] LABS: BASO % 1.1 % (0-2.0); EOS % 0.9 % (0-4.5); HEMATOCRIT 43.2 % (35.4-49); HEMOGLOBIN 14.3 GM/dL (11.7-16.9); LYMPH % 25.4 % (8-40); MCH 30.7 pg (25.7-33.7); MEAN CELL VOLUME 93.1 fl (80-96); MEAN PLT VOLUME 8.4 fl (7.5-11.1); MONO % 8.6 % (3.8-10.2); PLATELET COUNT 220 10^3/uL (134-434); RBC 4.64 M/mm3 (4.00-5.60); RDW 13.3 % (11.9-15.9); WHITE BLOOD COUNT 7.2 K/mm3 (4.0-10.0)
[2024-04-10 09:26] LABS: POTASSIUM 4.5 mmol/L (3.5-5.1)
[2024-04-10 09:29] LABS: ALBUMIN 3.8 g/dl (3.4-5.0); BLOOD UREA NITROGEN 12.7 mg/dL (7-18); MAGNESIUM 1.8 mg/dL (1.8-2.4)
[2024-04-10 09:32] LABS: CREATININE 0.8 mg/dL (0.55-1.3)
[2024-04-10 09:33] LABS: TOT PROT 7.2 g/dl (6.4-8.2)
[2024-04-10 11:33] VITALS: BP 152/98; PULSE 71
== END 2024-04-10 10:36 | disposition home or self-care (01) ==
LOC: JER 07:26
DX: J18.9 Pneumonia, unspecified organism (principal); I10 Essential (primary) hypertension
CPT/HCPCS: 36415; 71045-TC-FY; 80053; 83735; 84484; 85025; 93005; 93010; 99285-25

== ENCOUNTER 2024-08-03 05:12 | Emergency (ER) | payer OTHER ==
[2024-08-03 05:18] VITALS: RESP 18; TEMP 97.9; BMI 27.4
[2024-08-03] MEDS ORDERED: ACETAMINOPHEN 325 MG TABLET (FP) ONE (06:03)
[2024-08-03] MEDS: ACETAMINOPHEN 325 MG TABLET (FP) PO ONE (06:07)
[2024-08-03 06:32] VITALS: BP 152/76; PULSE 78
== END 2024-08-03 06:31 | disposition home or self-care (01) ==
LOC: JER 05:12
DX: R00.2 Palpitations (principal); R51.9 Headache, unspecified
CPT/HCPCS: 93005; 93010; 99283-25

== ENCOUNTER 2024-09-21 21:09 | Emergency (ER) | payer OTHER ==
[2024-09-21 21:14] VITALS: BP 148/75; PULSE 64; RESP 18; TEMP 98.2; BMI 20.5
== END 2024-09-21 22:23 | disposition home or self-care (01) ==
LOC: JER 21:09
DX: S09.90XA Unspecified injury of head, initial encounter (principal); X58.XXXA Exposure to other specified factors, initial encounter
CPT/HCPCS: 71046-TC-FY; 93005; 93010; 99284-25

== ENCOUNTER 2024-11-19 16:00 | Emergency (ER) | payer OTHER ==
[2024-11-19 16:10] VITALS: BP 95/83; PULSE 89; RESP 18; TEMP 98.6; BMI 26.0
== END 2024-11-19 16:40 | disposition home or self-care (01) ==
LOC: FER 16:00
DX: A49.1 Streptococcal infection, unspecified site (principal); R21 Rash and other nonspecific skin eruption
CPT/HCPCS: 99283-25

== ENCOUNTER 2024-12-03 19:25 | Observation (INO) | payer OTHER ==
[2024-12-03 19:35] VITALS: RESP 18; BMI 26.9
[2024-12-03 20:22] LABS: ABSOLUTE IMMATURE GRANULOCYTES 0.04 x10^3/uL (0.0-0.031); BASOPHILS # 0.08 x10^3/uL (0.01-0.08); EOSINOPHIL % 2.3 % (0.8-7.0); EOSINOPHILS # 0.20 x10^3/uL (0.04-0.54); MCHC 32.6 g/dl (32.3-36.5); MEAN CELL VOLUME 93.0 fl (79.0-92.2); MEAN PLT VOLUME 10.3 fl (9.4-12.4); MONOCYTE # 0.73 x10^3/uL (0.30-0.82); MONOCYTE % 8.3 % (5.3-12.2); RDW 13.7 % (12.2-16.1)
[2024-12-03] MEDS ORDERED: FAMOTIDINE 20 MG TABLET ONE (20:28)
[2024-12-03] MEDS ORDERED: ACETAMINOPHEN 325 MG TABLET (FP) ONE (20:29)
[2024-12-03] MEDS: FAMOTIDINE 20 MG TABLET PO ONE (20:30)
[2024-12-03] MEDS: ACETAMINOPHEN 325 MG TABLET (FP) PO ONE (20:30)
[2024-12-03 20:33] LABS: INR 0.99 (0.83-1.09); PROTHROMBIN TIME (PATIENT) 10.9 SEC (9.7-13.0)
[2024-12-03 20:36] LABS: ACTIVATED PTT 26.0 SECONDS (25.2-36.5)
[2024-12-03 20:44] LABS: GLUCOSE,RANDOM 86.0 mg/dL (74-106)
[2024-12-03 20:45] LABS: TOT PROT 6.9 g/dl (6.4-8.2)
[2024-12-03 20:46] LABS: CO2 19.0 mmol/L (21-32)
[2024-12-03 20:48] LABS: ALK PHOS 26.0 U/L (40-150)
[2024-12-03 20:50] LABS: SGOT/AST 17.0 U/L (5-34); SGPT/ALT 13.0 U/L (0-55)
[2024-12-03 20:51] LABS: CREATININE 0.62 mg/dL (0.55-1.3)
[2024-12-03 20:57] LABS: N-TERMINAL BNP 249.7 pg/mL (0-299.9)
[2024-12-03] MEDS ORDERED: morphine CARPU-JECT 2 MG/1 ML DISP.SYRIN IVPUSH PRN (21:58)
[2024-12-03] MEDS ORDERED: NITROGLYCERIN SUBLINGUAL 1/150 0.4 MG TAB SL PRN (22:03)
[2024-12-04 03:20] VITALS: TEMP 97.9
[2024-12-04 06:01] VITALS: BP 136/100; PULSE 78
[2024-12-04] MEDS ORDERED: ASPIRIN COATED 81 MG TABLET.EC PO SCH (10:00)
[2024-12-04] MEDS ORDERED: ENOXAPARIN NA (PORCINE) 40 MG/0.4 ML DISP.SYRIN SQ SCH (10:00)
[2024-12-04] MEDS ORDERED: ATORVASTATIN CA 40 MG TABLET (FP) PO SCH (22:00)
== END 2024-12-04 06:10 | disposition left against medical advice (07) ==
LOC: JER 19:25 → JERBED 21:41 → J6W TELE 23:26
PROVIDERS: ADMIT Hospitalist; ATTEND Internal Medicine
DX: I48.0 Paroxysmal atrial fibrillation (principal); I25.10 Atherosclerotic heart disease of native coronary artery without angina pectoris; I49.9 Cardiac arrhythmia, unspecified; F20.9 Schizophrenia, unspecified; Z86.718 Personal history of other venous thrombosis and embolism; G47.33 Obstructive sleep apnea (adult) (pediatric); Z98.84 Bariatric surgery status; F17.210 Nicotine dependence, cigarettes, uncomplicated
CPT/HCPCS: 36415; 71045-TC-FY; 80053; 83690; 83735; 83880; 84100; 84439; 84443; 84484; 85025; 85610; 85730; 86850; 86900; 86901; 93005; 93010; 99285-25; G0378